=== PATIENT | female | born 1985 | race Caucasian/White ===

== ENCOUNTER 2018-06-06 09:43 | Emergency (ER) | payer MEDICAID ==
[~2018-06-06] VITALS: Ht 154.9 cm; Wt 52.6 kg
[2018-06-06 09:52] VITALS: BP_SYST 113
[2018-06-06 10:20] VITALS: BP_SYST 113
== END 2018-06-06 10:20 | disposition home or self-care (01) ==
LOC: SED 09:43
DX: S00.83XA Contusion of other part of head, initial encounter (principal); V43.52XA Car driver injured in collision with other type car in traffic accident, initial encounter; Y93.89 Activity, other specified; Y92.411 Interstate highway as the place of occurrence of the external cause; Y99.8 Other external cause status
CPT/HCPCS: 81025; 99283